=== PATIENT | female | born 1990 | race Caucasian/White ===

== ENCOUNTER 2016-12-21 21:42 | Emergency (ER) | payer BC, MEDICAID ==
[2016-12-21] MEDS ORDERED: Cephalexin CAP* 500 MG PO ONE (22:02)
--- NOTE | 2016-12-21 22:06 | UC ---
Skin Complaint HPI - HPI Summary HPI Summary: bug bite right 2nd toe 1 day ago now the area is red, swollen , very tender - History of Current Complaint Chief Complaint: UCSkin Time Seen by Provider: 12/21/16 21:46 Stated Complaint: PAINFUL RT 2ND TOE Hx Obtained From: Patient Hx Last Menstrual Period: 12/03/16 ?: No Onset/Duration: Sudden Onset, Lasting Days - 1, Still Present Timing: Constant Onset Severity: Moderate Current Severity: Moderate Location: Discrete - right 2nd toe Character: Swelling, Pain, Redness, Raised, Painful Aggravating: Touch Alleviating: Nothing Associated Signs & Symptoms: Positive: Negative - Allergy/Home Medications Allergies/Adverse Reactions: Allergies Allergy/AdvReac Type Severity Reaction Status Date / Time Sulfamethoxazole Allergy Hives Verified 12/21/16 21:51 w/Trimethoprim [From Bactrim] Home Medications: Home Medications Buprenorphine/Naloxone SL TAB* [Suboxone 8-2 mg SL TAB*] 1 tab.sl SL DAILY 12/21 [History Confirmed 12/21/16] Citalopram TAB* [CeleXA TAB*] 20 mg PO DAILY 12/21/16 [History Confirmed ] Nitrofurantoin Monohyd Macro [Macrobid] 100 mg PO BID 12/21/16 [History Confirmed 12/21/16] Omeprazole CAP* [Prilosec CAP* 20 MG] 20 mg DAILY 12/21/16 [History Confirmed ] Pramipexole TAB* [Mirapex TAB*] 0.125 mg PO TID 12/21/16 [History Confirmed ] Review of Systems Constitutional: Negative Eyes: Negative ENT: Negative Respiratory: Negative All Other Systems Reviewed And Are Negative: Yes PMH/Surg Hx/FS Hx/Imm Hx Previously Healthy: Yes - Surgical History Surgical History: Yes Surgery Procedure, Year, and Place: gall bladder. APPY - Family History Known Family History: Negative: Diabetes - Social History Alcohol Use: None Substance Use Type: None Smoking Status (MU): Light Every Day Tobacco Smoker Physical Exam Triage Information Reviewed: Yes Appearance: Well-Appearing, No Pain Distress, Well-Nourished Vital Signs: Initial Vital Signs Temp 97.6 F 12/21/16 21:46 Pulse 88 12/21/16 21:46 Resp 14 12/21/16 21:46 BP 103/58 12/21/16 21:46 Pulse Ox 99 12/21/16 21:46 Vital Signs Reviewed: Yes Eyes: Positive: Conjunctiva Clear ENT: Positive: Normal ENT inspection, Hearing grossly normal, Pharynx normal Neck exam: Normal Neck: Positive: Supple, Nontender, No Lymphadenopathy Respiratory: Positive: Chest non-tender, Lungs clear, Normal breath sounds Cardiovascular: Positive: RRR, No Murmur, Pulses Normal Skin: Positive: Other - right 2nd toe: + swelling , erythe, tenderness Course/Dx - Diagnoses Provider Diagnoses: cellulits toe Discharge - Discharge Plan Condition: Stable Disposition: HOME Prescriptions: Cephalexin CAP* [Keflex CAP*] 500 mg PO TID #30 cap Patient Education Materials: Abscess (ED) Referrals: Jarvis Palomo MD [Primary Care Provider] - If Needed
[2016-12-21 22:11] VITALS: BP 103/58
== END 2016-12-21 22:12 | disposition home or self-care (01) ==
LOC: UCCORT 21:42
DX: L03.031 Cellulitis of right toe (principal); F17.210 Nicotine dependence, cigarettes, uncomplicated
CPT/HCPCS: 99212; A9270-GY; G0463

== ENCOUNTER 2017-02-26 20:36 | Emergency (ER) | payer BC, MEDICAID ==
--- NOTE | 2017-02-26 20:50 | UC ---
Throat Pain/Nasal Kishan HPI - HPI Summary HPI Summary: 26 YEAR OLD FEMALE PRESENTS WITH COMPLAINS OF SORE THROAT X 1 DAY - History of Current Complaint Stated Complaint: SORE THROAT/FEVER Time Seen by Provider: 02/26/17 20:49 Hx Obtained From: Patient Hx Last Menstrual Period: 12/03/16 Onset/Duration: Sudden Onset Severity: Moderate Pain Scale Used: 0-10 Numeric - 4 - Allergies/Home Medications Allergies/Adverse Reactions: Allergies Allergy/AdvReac Type Severity Reaction Status Date / Time Sulfa Antibiotics Allergy Hives Verified 02/26/17 20:53 Sulfamethoxazole Allergy Hives Verified 12/21/16 21:51 w/Trimethoprim [From Bactrim] PMH/Surg Hx/FS Hx/Imm Hx Previously Healthy: Yes - Surgical History Surgical History: Yes Surgery Procedure, Year, and Place: gall bladder. APPY - Family History Known Family History: Negative: Diabetes - Social History Alcohol Use: None Substance Use Type: None Smoking Status (MU): Light Every Day Tobacco Smoker Review of Systems Constitutional: Negative Skin: Negative Eyes: Negative ENT: Sore Throat Respiratory: Negative Cardiovascular: Negative Gastrointestinal: Negative Genitourinary: Negative Motor: Negative Neurovascular: Negative Musculoskeletal: Negative Neurological: Negative Psychological: Negative All Other Systems Reviewed And Are Negative: Yes Physical Exam Triage Information Reviewed: Yes Appearance: Well-Appearing Eye Exam: Normal ENT: Positive: Pharyngeal erythema, Nasal drainage Dental Exam: Normal Neck exam: Normal Neck: Positive: 1 Respiratory Exam: Normal Cardiovascular Exam: Normal Abdominal Exam: Normal Musculoskeletal Exam: Normal Neurological Exam: Normal Psychological Exam: Normal Skin Exam: Normal Throat Pain/Nasal Course/Dx - Differential Dx/Diagnosis Provider Diagnoses: PHARYNGITIS Discharge - Discharge Plan Condition: Stable Disposition: HOME Prescriptions: Amoxicillin PO (*) [Amoxicillin 875 MG (*)] 875 mg PO BID #30 tab LoraTADine TAB(NF) [Claritin 10 MG TAB(NF)] 10 mg PO DAILY #30 tab Magic M W2 Andrea/Maal/Nyst/Lido* 5 ml SWISH SPIT QID PRN #120 ml PRN Reason: Sore Throat Patient Education Materials: Pharyngitis (ED) Forms: *Work Release Referrals: Jarvis Palomo MD [Primary Care Provider] -
[2017-02-26 20:52] VITALS: BP 112/60
[2017-02-26] MEDS ORDERED: Lidocaine 2% VISCOUS* 15 ML UDC SWISH SPIT ONE (21:11)
[2017-02-26] MEDS ORDERED: LoraTADine TAB(NF) 10 MG TAB (AUTOSUB to CETIRIZINE) PO ONE (21:11)
== END 2017-02-26 21:23 | disposition home or self-care (01) ==
LOC: UCCORT 20:36
DX: J02.9 Acute pharyngitis, unspecified (principal); Z88.2 Allergy status to sulfonamides; F17.210 Nicotine dependence, cigarettes, uncomplicated
CPT/HCPCS: 87651; 99212; A9270-GY; G0463

== ENCOUNTER 2017-06-05 20:23 | Emergency (ER) | payer BC, MEDICAID ==
[2017-06-05 20:55] VITALS: BP 115/57
--- NOTE | 2017-06-05 21:57 | UC ---
Abdominal Pain Female HPI - HPI Summary HPI Summary: one day of llq pain and fever tmax 103.9 no nausea,vomiting, diarrhea, body aches - History of Current Complaint Chief Complaint: UCAbdominalPain Stated Complaint: FEVER, ABD. PAIN Time Seen by Provider: 06/05/17 21:37 Hx Obtained From: Patient Hx Last Menstrual Period: 8 days late ?: No Onset/Duration: Sudden Onset, Lasting Days - 1, Still Present Timing: Constant Severity Initially: Moderate Severity Currently: Moderate Location: Discrete At: LLQ Radiates: No Aggravating Factor(s): Nothing Alleviating Factor(s): Nothing Associated Signs and Symptoms: Positive: Fever Allergies/Adverse Reactions: Allergies Allergy/AdvReac Type Severity Reaction Status Date / Time Sulfa Antibiotics Allergy Hives Verified 06/05/17 20:48 Sulfamethoxazole Allergy Hives Verified 06/05/17 20:48 w/Trimethoprim [From Bactrim] Home Medications: Home Medications Gabapentin 300 mg PO TID 06/05/17 [History Confirmed 06/05/17] PMH/Surg Hx/FS Hx/Imm Hx Previously Healthy: No GI/ History: Gastroesophageal Reflux Psychological History: Depression, Other Other Psychological History: Opiate abuse disorder in early remission - Surgical History Surgical History: Yes Surgery Procedure, Year, and Place: gall bladder. APPY. hole in bile duct - Family History Known Family History: Positive: None Negative: Diabetes - Social History Occupation: Unemployed Lives: Longterm Alcohol Use: None Substance Use Type: None Smoking Status (MU): Light Every Day Tobacco Smoker Type: Cigarettes Amount Used/How Often: occasional - Immunization History Most Recent Influenza Vaccination: no Review of Systems Constitutional: Fever Skin: Negative Eyes: Negative ENT: Negative Respiratory: Negative Cardiovascular: Negative Gastrointestinal: Abdominal Pain Genitourinary: Negative Motor: Negative Neurovascular: Negative Musculoskeletal: Negative Neurological: Negative Psychological: Negative Is Patient Immunocompromised?: No All Other Systems Reviewed And Are Negative: Yes Physical Exam Triage Information Reviewed: Yes Appearance: Well-Appearing, No Pain Distress, Obese Vital Signs: Initial Vital Signs Temp 103.3 F 06/05/17 20:51 Pulse 112 06/05/17 20:51 Resp 20 06/05/17 20:51 BP 115/57 06/05/17 20:51 Pulse Ox 99 06/05/17 20:51 Vital Signs Reviewed: Yes Eye Exam: Normal Eyes: Positive: Conjunctiva Clear ENT Exam: Normal ENT: Positive: Normal ENT inspection, Hearing grossly normal, Pharynx normal, TMs normal, Uvula midline. Negative: Nasal congestion, Nasal drainage, Tonsillar swelling, Tonsillar exudate, Trismus, Hoarse voice, Dental tenderness , Sinus tenderness Dental Exam: Normal Neck exam: Normal Neck: Positive: Supple, Nontender, No Lymphadenopathy Respiratory Exam: Normal Respiratory: Positive: Chest non-tender, Lungs clear, Normal breath sounds, No respiratory distress, No accessory muscle use Cardiovascular Exam: Normal Cardiovascular: Positive: No Murmur, Pulses Normal, Brisk Capillary Refill, Tachycardia Abdominal Exam: Normal Abdomen Description: Positive: No Organomegaly, Soft, Other: - tender left lower and mid left side of abdomen. Negative: CVA Tenderness (R), CVA Tenderness (L), Guarding, Hepatomegaly, McBurney's Point Tenderness, Peritoneal Signs, Pulsatile Mass Bowel Sounds: Positive: Present Musculoskeletal Exam: Normal Musculoskeletal: Positive: Strength Intact, ROM Intact, No Edema Neurological Exam: Normal Neurological: Positive: Alert, Muscle Tone Normal Psychological Exam: Normal Skin Exam: Normal Diagnostics - Laboratory Diagnostic Studies Completed/Ordered: u preg Positive, Ua trace esterace, influenza A/B negative Abd Pain Female Course/Dx - Course Course Of Treatment: NPO to [place] [facility] for further evaluation - Differential Dx/Diagnosis Provider Diagnoses: Fever, abdomen pain - Physician Notification/Consults Time Discussed With Above Provider: 21:55 - Ruthie Mckeon LIFE CONSULTANT Instructed by Provider To: Transfer Discharge - Discharge Plan Condition: Stable Disposition: OTHER Discharge Disposition Comment: [place] By private Car Patient Education Materials: Acute Abdominal Pain (ED) Forms: *Gen. Provider Communication Referrals: Jarvis Palomo MD [Primary Care Provider] - Additional Instructions: Please go directly to emergency department for additional care and treatment
== END 2017-06-05 21:59 ==
LOC: UCCORT 20:23
DX: R10.32 Left lower quadrant pain (principal); R50.9 Fever, unspecified; Z32.01 Encounter for pregnancy test, result positive; K21.9 Gastro-esophageal reflux disease without esophagitis; F32.9 Major depressive disorder, single episode, unspecified; F11.11 Opioid abuse, in remission; E66.9 Obesity, unspecified; Z90.49 Acquired absence of other specified parts of digestive tract; Z88.2 Allergy status to sulfonamides; F17.210 Nicotine dependence, cigarettes, uncomplicated
CPT/HCPCS: 81003; 84702; 87086; 87502; 99212; G0463

== ENCOUNTER 2017-08-13 10:36 | Emergency (ER) | payer BC, MEDICAID ==
[2017-08-13 11:56] VITALS: BP 102/60
--- NOTE | 2017-08-13 12:20 | ED ---
Throat Pain/Nasal Congestion - HPI Summary HPI Summary: 27 yr old female with the complaint of sore throat for a couple of days. She also complains of nasal congestion and mild cough as well. No fever or chills. She is about 4 months. She has no other complaints. - History of Current Complaint Chief Complaint: UCGeneralIllness Time Seen by Provider: 08/13/17 11:52 - Allergies/Home Medications Allergies/Adverse Reactions: Allergies Allergy/AdvReac Type Severity Reaction Status Date / Time Sulfa (Sulfonamide Allergy Intermediate Rash Verified 08/13/17 11:56 Antibiotics) Home Medications: Home Medications Desloratidine (NF) [Clarinex (NF)] 08/13/17 [History] Folic Acid TAB* [Folvite TAB*] 08/13/17 [History] Hss579/Iron Fum/Folic/Docusate [ 19 Tablet] 08/13/17 [History] PMH/Surg Hx/FS Hx/Imm Hx - Surgical History Surgery Procedure, Year, and Place: gall bladder. APPY. hole in bile duct Infectious Disease History: No Infectious Disease History: Denies: Traveled Outside the [place] in Last 30 Days - Family History Known Family History: Positive: None Negative: Diabetes - Social History Occupation: Unemployed Lives: With Family Alcohol Use: None Substance Use Type: Reports: None Smoking Status (MU): Light Every Day Tobacco Smoker Type: Cigarettes Amount Used/How Often: occasional Review of Systems Constitutional: Negative Positive: Sore Throat Positive: Cough All Other Systems Reviewed And Are Negative: Yes Physical Exam Triage Information Reviewed: Yes Vital Signs On Initial Exam: Initial Vitals Temp Pulse Resp BP Pulse Ox 96.8 F 77 20 102/60 99 08/13/17 11:52 08/13/17 11:52 08/13/17 11:52 08/13/17 11:52 08/13/17 11:52 Vital Signs Reviewed: Yes Appearance: Positive: Well-Appearing, No Pain Distress Skin: Positive: Warm, Skin Color Reflects Adequate Perfusion Head/Face: Positive: Normal Head/Face Inspection Eyes: Positive: EOMI ENT: Positive: Pharyngeal erythema, Nasal congestion Neck: Positive: Nontender Respiratory/Lung Sounds: Positive: Clear to Auscultation, Breath Sounds Present Cardiovascular: Positive: RRR. Negative: Murmur Abdomen Description: Positive: Nontender Neurological: Positive: Sensory/Motor Intact, Alert, Oriented to Person Place, Time, CN Intact II-III Psychiatric: Positive: Normal - Conner Coma Scale Best Eye Response: 4 - Spontaneous Best Motor Response: 6 - Obeys Commands Best Verbal Response: 5 - Oriented Coma Scale Total: 15 Diagnostics - Vital Signs Vital Signs Temp Pulse Resp BP Pulse Ox 08/13/17 11:52 96.8 F 77 20 102/60 99 - Laboratory Lab Results: Lab Results 08/13/17 Range/Units 12:04 Group A Strep Rapid Negative (Negative) Lab Statement: Any lab studies that have been ordered have been reviewed, and results considered in the medical decision making process. EENT Course/Dx - Course Course Of Treatment: 27 yr old female with sore throat, and URI symptoms. Plan DC home. Rapid strep neg - Diagnoses Provider Diagnoses: URI (upper respiratory infection) Discharge - Discharge Plan Condition: Good Disposition: HOME Patient Education Materials: Upper Respiratory Infection (ED) Referrals: Jarvis Palomo MD [Primary Care Provider] - 2 Days
== END 2017-08-13 12:25 | disposition home or self-care (01) ==
LOC: UCCORT 10:36
DX: J06.9 Acute upper respiratory infection, unspecified (principal); Z88.2 Allergy status to sulfonamides; F17.210 Nicotine dependence, cigarettes, uncomplicated
CPT/HCPCS: 87651; 99211; G0463

== ENCOUNTER 2017-10-08 15:36 | Emergency (ER) | payer BC, MEDICAID ==
[2017-10-08 16:01] VITALS: BP 86/62
--- NOTE | 2017-10-08 16:09 | UC ---
Ear Complaint HPI - HPI Summary HPI Summary: Pt c/o gradual onset of left ear pain 2-3 days. - History of Current Complaint Chief Complaint: UCEar Stated Complaint: LEFT EAR PAIN Time Seen by Provider: 10/08/17 15:53 Hx Obtained From: Patient ?: Yes - 24 weeks Onset/Duration: Gradual Onset, Still Present Severity Initially: Mild Severity Currently: Moderate Pain Intensity: 9 Associated Signs/Symptoms: Positive: Hearing Loss Related History: Seasonal Allergies - Allergies/Home Medications Allergies/Adverse Reactions: Allergies Allergy/AdvReac Type Severity Reaction Status Date / Time Sulfa (Sulfonamide Allergy Intermediate Rash Verified 10/08/17 15:53 Antibiotics) Home Medications: Home Medications Buprenorphine TAB* [Subutex TAB*] 8 mg SL BID 10/08/17 [History Confirmed ] metroNIDAZOLE TAB* [Flagyl 250 mg TAB*] 500 mg BID 10/08/17 [History Confirmed 10/08/17] traZODone TAB* [Desyrel TAB*] 50 mg BEDTIME 10/08/17 [History Confirmed 10/08/17 ] PMH/Surg Hx/FS Hx/Imm Hx Previously Healthy: Yes - Surgical History Surgical History: Yes Surgery Procedure, Year, and Place: gall bladder. APPY. hole in bile duct - Family History Known Family History: Positive: None Negative: Diabetes - Social History Occupation: Employed Full-time Lives: With Family Alcohol Use: None Substance Use Type: None Smoking Status (MU): Former Smoker Type: Cigarettes Amount Used/How Often: occasional Have You Smoked in the Last Year: Yes - Immunization History Most Recent Influenza Vaccination: no Review of Systems Constitutional: Negative Skin: Negative Eyes: Negative ENT: Ear Ache Respiratory: Negative Cardiovascular: Negative Gastrointestinal: Negative Genitourinary: Negative Motor: Negative Neurovascular: Negative Musculoskeletal: Negative Neurological: Negative Psychological: Negative Is Patient Immunocompromised?: No All Other Systems Reviewed And Are Negative: Yes Physical Exam Triage Information Reviewed: Yes Appearance: Well-Appearing Vital Signs: Initial Vital Signs Temp 97.2 F 10/08/17 15:56 Pulse 91 10/08/17 15:56 Resp 18 10/08/17 15:56 BP 86/62 10/08/17 15:56 Pulse Ox 99 10/08/17 15:56 Vital Signs Reviewed: Yes Eye Exam: Normal ENT Exam: Other ENT: Positive: Other - left ear canal with cerumen Respiratory Exam: Normal Musculoskeletal Exam: Normal Neurological Exam: Normal Psychological Exam: Normal Skin Exam: Normal Ear Complaint Course/Dx - Differential Dx/Diagnosis Differential Diagnosis/HQI/PQRI: Cerumen Impaction Provider Diagnoses: left ear cerumen impaction Discharge - Sign-Out/Discharge Documenting (check all that apply): Discharge/Admit/Transfer - Discharge Plan Condition: Stable Disposition: HOME Patient Education Materials: Cerumen Impaction (ED) Referrals: Jarvis Palomo MD [Primary Care Provider] - If Needed - Billing Disposition and Condition Condition: STABLE Disposition: HOME
== END 2017-10-08 16:27 | disposition home or self-care (01) ==
LOC: UCCORT 15:36
DX: H61.22 Impacted cerumen, left ear (principal); Z87.891 Personal history of nicotine dependence; Z88.2 Allergy status to sulfonamides
CPT/HCPCS: 99212; G0463

== ENCOUNTER 2017-12-26 16:46 | Emergency (ER) | payer BC, MEDICAID ==
[2017-12-26 17:52] VITALS: BP 103/55
--- NOTE | 2017-12-26 18:24 | UC ---
Skin Complaint HPI - HPI Summary HPI Summary: Pt is 9 months (EDC 01/24) and concerns for hcnv-ovwz-kxz-mouth disease. Patient states she had some sores on the outside of her right lower lip that scabbed over. Patient is mildly tender. Patient states today she developed some red flat rashes to her palms. Patient states she's had hand-foot -and-mouth before and this is how presented. No blisters. No pain. No fevers. No nausea or vomiting. No cough no chest pain. Patient continues to feel good baby movement. No changes to bowel or bladder. No dysuria. Patient recently discomfort found out that her hepatitis C has reactivated. Patient also has a history of HPV and herpes. She without any discomfort but wanted to get checked. Pt's medications reviewed this visit - History of Current Complaint Chief Complaint: UCSkin Time Seen by Provider: 12/26/17 17:41 Stated Complaint: SKIN COMPLAINT Hx Obtained From: Patient, Medical Records, Other: - [facility] Hx Last Menstrual Period: 8 days late Pain Intensity: 5 - Allergy/Home Medications Allergies/Adverse Reactions: Allergies Allergy/AdvReac Type Severity Reaction Status Date / Time Sulfa (Sulfonamide Allergy Intermediate Rash Verified 10/08/17 15:53 Antibiotics) Home Medications: Home Medications raNITIdine HCl [Ranitidine HCl] 150 mg PO BID 12/26/17 [History Confirmed ] Review of Systems Constitutional: Negative Skin: Rash Eyes: Negative ENT: Negative Respiratory: Negative Cardiovascular: Negative Gastrointestinal: Negative Neurovascular: Negative Musculoskeletal: Negative Neurological: Negative Psychological: Negative All Other Systems Reviewed And Are Negative: Yes PMH/Surg Hx/FS Hx/Imm Hx Previously Healthy: Yes Other GI/ History: HPV, herpes - Surgical History Surgical History: Yes Surgery Procedure, Year, and Place: gall bladder. APPY. hole in bile duct - Family History Known Family History: Positive: None Negative: Diabetes - Social History Occupation: Unemployed Lives: With Family Alcohol Use: None Substance Use Type: None Smoking Status (MU): Former Smoker Type: Cigarettes Amount Used/How Often: occasional Have You Smoked in the Last Year: Yes - Immunization History Most Recent Influenza Vaccination: no Physical Exam - Summary Physical Exam Summary: Vital Signs Reviewed: Yes A+Ox3, no distress Eyes: Conjunctiva Clear, DREW. EOM intact and full ENT: Hearing grossly normal TM x 2 clear, mmoist, uvula midline, no exudate, no erythema Neck: Positive: Supple Respiratory: Positive: No respiratory distress, No accessory muscle use + CTA throughout no w/r Cardiovascular: RRR nl s1, s2 no m/r CBT <2 sec abd soft + BS nt/nd no guarding, no distension gravid Musculoskeletal Exam: KENNEY x 4 without difficulty Strength Intact, ROM Intact Neurological: Positive: Alert, + sensation throughout Psychological: Positive: Normal Response To Family Skin: Positive: few with 3 small, scabbed lesion dry right right lower lip No lesions noted inside mouth, tongue, buccal membrane, soft palate Pt with flat small erythema Triage Information Reviewed: Yes Vital Signs: Initial Vital Signs Temp 98.2 F 12/26/17 17:44 Pulse 82 12/26/17 17:44 Resp 19 12/26/17 17:44 BP 103/55 12/26/17 17:44 Pulse Ox 99 12/26/17 17:44 Course/Dx - Course Course Of Treatment: Patient presents to be evaluated for possible usux-[id number]-gpz -mouth. Patient has dry scab lesion on the outside of her mouth that appear more consistent with herpes cold sore that have dried. Patient with very subtle small red areas to her palm. Not raised not blistered not tender. Patient reports good movement . Not petechial. Suspect this is a viral exanthem however not convinced it is asrf-mhal-mrc-mouth given the absence of blister appearing and discomfort. Recommend patient continue with secretion precaution. Tylenol as needed. Hydration. Recommend patient notify her OB before her appointment next Sunday if her symptoms progress. Recommended patient schedule follow-up with primary care provider. Strict return precautions discussed. Patient comfortable in agreement with plan. - Diagnoses Provider Diagnoses: viral [place] Discharge - Sign-Out/Discharge Documenting (check all that apply): Patient Departure - Discharge Plan Condition: Stable Disposition: HOME Patient Education Materials: Viral Exanthem (ED) Referrals: Jarvis Palomo MD [Primary Care Provider] - Additional Instructions: - Stay well-hydrated. Drink plenty of non-caffeinated beverages - Okay to take Tylenol, 650 mg, every 6-8 hours as needed for discomfort - If he developed sores in her mouth, cold fluids may be soothing. This includes popsicles, Jell-O, iced drinks - Contact your OB doctor before presenting to the office for the appointment next week - If you develop uncontrolled fevers, unable to eat or drink, abdominal pain, decrease baby activity or other concerns is recommended to come immediately to emergency department for further evaluation. - Billing Disposition and Condition Condition: STABLE Disposition: Home
== END 2017-12-26 18:37 | disposition home or self-care (01) ==
LOC: UCCORT 16:46
DX: O98.513 Other viral diseases complicating pregnancy, third trimester (principal); B09 Unspecified viral infection characterized by skin and mucous membrane lesions; L98.8 Other specified disorders of the skin and subcutaneous tissue; Z88.2 Allergy status to sulfonamides; Z87.891 Personal history of nicotine dependence
CPT/HCPCS: 99211; G0463

== ENCOUNTER 2018-05-10 11:50 | Emergency (ER) | payer BC, MEDICAID ==
[2018-05-10 12:36] VITALS: BP 95/66
--- NOTE | 2018-05-10 12:55 | UC ---
Lower Extremity/Ankle HPI - HPI Summary HPI Summary: right foot pain x 1 week twisted her right ankle 7 days ago no swelling, no bruising ankle improved but pain in he right foot increased - History of Current Complaint Chief Complaint: UCLowerExtremity Stated Complaint: RIGHT FOOT COMPLAINT Time Seen by Provider: 05/10/18 12:29 Hx Obtained From: Patient Hx Last Menstrual Period: 2016 ?: No Onset/Duration: Sudden Onset, Lasting Days - 7, Still Present Severity Initially: Moderate Severity Currently: Moderate Pain Intensity: 8 Aggravating Factor(s): Standing, Ambulation Alleviating Factor(s): Rest, Elevation, Ice Able to Bear Weight: Yes - Allergies/Home Medications Allergies/Adverse Reactions: Allergies Allergy/AdvReac Type Severity Reaction Status Date / Time Sulfa (Sulfonamide Allergy Intermediate Rash Verified 05/10/18 12:37 Antibiotics) Home Medications: Home Medications Ibuprofen TAB* [Motrin TAB* 600 MG] 600 mg PO BID PRN 05/10/18 [History Confirmed 05/10/18] PMH/Surg Hx/FS Hx/Imm Hx - Additional Past Medical History Additional PMH: Hep C Psychological History: Anxiety, Depression - Surgical History Surgical History: Yes Surgery Procedure, Year, and Place: gall bladder; c-sect 01/24/18. APPY. hole in bile duct - Family History Known Family History: Positive: None Negative: Diabetes - Social History Alcohol Use: None Substance Use Type: None Smoking Status (MU): Former Smoker Type: Cigarettes Amount Used/How Often: occasional Have You Smoked in the Last Year: Yes - Immunization History Most Recent Influenza Vaccination: no Review of Systems All Other Systems Reviewed And Are Negative: Yes Constitutional: Positive: Negative Skin: Positive: Negative Eyes: Positive: Negative ENT: Positive: Negative Is Patient Immunocompromised?: No Physical Exam Triage Information Reviewed: Yes Appearance: Well-Appearing, No Pain Distress, Obese Vital Signs: Initial Vital Signs Temp 97.2 F 05/10/18 12:27 Pulse 76 05/10/18 12:27 Resp 20 05/10/18 12:27 BP 95/66 05/10/18 12:27 Pulse Ox 99 05/10/18 12:27 Vital Signs Reviewed: Yes Eye Exam: Normal Eyes: Positive: Conjunctiva Clear ENT: Positive: Normal ENT inspection, Hearing grossly normal, Pharynx normal Dental: Positive: Percussion Tenderness @, Gross Decay/Caries @, Dental Fracture @ Neck: Positive: Supple, Nontender, No Lymphadenopathy Respiratory: Positive: Chest non-tender, Lungs clear, Normal breath sounds, No respiratory distress Cardiovascular: Positive: RRR, No Murmur, Pulses Normal Abdominal Exam: Normal Musculoskeletal: Positive: Other: - right ankle : no sweling, no burising, good ROM on flexion and extension right foot : + tenderness right , no swelling, good ROM Diagnostics - Laboratory Diagnostic Studies Completed/Ordered: xray right ankle : IMPRESSION: NO EVIDENCE OF FRACTURE. Lower Extremity Course/Dx - Differential Dx/Diagnosis Differential Diagnosis/HQI/PQRI: Arthritis Provider Diagnosis: Right foot strain Discharge - Sign-Out/Discharge Documenting (check all that apply): Patient Departure All imaging exams completed and their final reports reviewed: Yes - Discharge Plan Condition: Stable Disposition: HOME Patient Education Materials: Ankle Strain (ED) Referrals: Jarvis Palomo MD [Primary Care Provider] - - Billing Disposition and Condition Condition: STABLE Disposition: Home
== END 2018-05-10 13:23 | disposition home or self-care (01) ==
LOC: UCCORT 11:50
DX: S93.601A Unspecified sprain of right foot, initial encounter (principal); X58.XXXA Exposure to other specified factors, initial encounter; Y92.9 Unspecified place or not applicable; Z88.2 Allergy status to sulfonamides; Z87.891 Personal history of nicotine dependence
CPT/HCPCS: 99212; G0463

== ENCOUNTER 2018-09-20 15:50 | Emergency (ER) | payer BC, MEDICAID, OTHER ==
[2018-09-20 17:03] VITALS: BP 115/67
--- NOTE | 2018-09-20 17:28 | UC ---
Respiratory Complaint HPI - HPI Summary HPI Summary: Pt c/o cough, fever, wheezing, nasal and chest congestion X 2 days. - History of Current Complaint Chief Complaint: UCGeneralIllness Stated Complaint: COUGH, CONGESTION, FEVER Time Seen by Provider: 09/20/18 16:55 Hx Obtained From: Patient Hx Last Menstrual Period: Apr 26 2017 ?: No Onset/Duration: Gradual Onset, Lasting Days, Still Present Timing: Constant Severity Initially: Mild Severity Currently: Moderate Pain Intensity: 7 Character: Cough: Nonproductive Aggravating Factors: Deep Breaths, Recumbent Position Alleviating Factors: Nothing Associated Signs And Symptoms: Positive: Wheezing, URI, Nasal Congestion, Hoarseness Related History: Seasonal Allergies - Risk Factors Pulmonary Embolism Risk Factors: Negative Cardiac Risk Factors: Negative Pseudomonas Risk Factors: Negative Tuberculosis Risk Factors: Negative - Allergies/Home Medications Allergies/Adverse Reactions: Allergies Allergy/AdvReac Type Severity Reaction Status Date / Time Sulfa (Sulfonamide Allergy Intermediate Rash Verified 09/20/18 17:04 Antibiotics) Home Medications: Home Medications Loratadine 10 mg PO DAILY 09/20/18 [History Confirmed 09/20/18] PMH/Surg Hx/FS Hx/Imm Hx Previously Healthy: Yes - Surgical History Surgical History: Yes Surgery Procedure, Year, and Place: gall bladder; c-sect 01/24/18. [facility]. hole in bile duct - Family History Known Family History: Positive: None Negative: Diabetes - Social History Occupation: Employed Full-time Lives: With Family Alcohol Use: None Substance Use Type: None Smoking Status (MU): Former Smoker Type: Cigarettes Amount Used/How Often: occasional Have You Smoked in the Last Year: Yes - Immunization History Most Recent Influenza Vaccination: no Vaccination Up to Date: No Review of Systems All Other Systems Reviewed And Are Negative: Yes Constitutional: Positive: Fever, Chills, Fatigue Skin: Positive: Negative Eyes: Positive: Negative ENT: Positive: Sinus Congestion Respiratory: Positive: Cough Cardiovascular: Positive: Negative Gastrointestinal: Positive: Negative Genitourinary: Positive: Negative Motor: Positive: Negative Neurovascular: Positive: Negative Musculoskeletal: Positive: Negative Neurological: Positive: Negative Psychological: Positive: Negative Is Patient Immunocompromised?: No Physical Exam Triage Information Reviewed: Yes Appearance: Well-Appearing Vital Signs: Initial Vital Signs Temp 98.7 F 09/20/18 16:55 Pulse 74 09/20/18 16:55 Resp 18 09/20/18 16:55 BP 115/67 09/20/18 16:55 Pulse Ox 99 09/20/18 16:55 Vital Signs Reviewed: Yes Eye Exam: Normal ENT Exam: Other ENT: Positive: Nasal congestion, Hoarse voice Dental Exam: Normal Neck exam: Normal Neck: Positive: Supple, Nontender, No Lymphadenopathy Respiratory Exam: Normal Respiratory: Positive: Normal breath sounds Cardiovascular Exam: Normal Musculoskeletal Exam: Normal Neurological Exam: Normal Psychological Exam: Normal Skin Exam: Normal Respiratory Course/Dx - Differential Dx/Diagnosis Differential Diagnosis/HQI/PQRI: Asthma, Bronchitis, Exacerbation Of COPD Provider Diagnosis: Reactive airway disease that is not asthma, Cough Discharge - Sign-Out/Discharge Documenting (check all that apply): Patient Departure All imaging exams completed and their final reports reviewed: No Studies - Discharge Plan Condition: Stable Disposition: HOME Prescriptions: Albuterol HFA INHALER* [Ventolin HFA Inhaler*] 1 - 2 puff INH Q4H PRN #1 mdi PRN Reason: Sob/Wheezing Benzonatate CAP* [Tessalon 100 MG CAP*] 100 mg PO Q8H PRN #21 cap PRN Reason: Cough predniSONE TAB* [Deltasone 10 MG TAB*] 30 mg PO DAILY #12 tab Patient Education Materials: Reactive Airways Disease (ED) Referrals: Jarvis Palomo MD [Primary Care Provider] - If Needed - Billing Disposition and Condition Condition: STABLE Disposition: Home
== END 2018-09-20 17:51 | disposition home or self-care (01) ==
LOC: UCCORT 15:50
DX: R05 Cough (principal); J68.3 Other acute and subacute respiratory conditions due to chemicals, gases, fumes and vapors; Z88.2 Allergy status to sulfonamides; Z87.891 Personal history of nicotine dependence
CPT/HCPCS: 99212; G0463

== ENCOUNTER 2018-12-18 16:41 | Emergency (ER) | payer OTHER ==
[2018-12-18 16:53] VITALS: BP 88/58
--- NOTE | 2018-12-18 17:04 | UC ---
UC General HPI - HPI Summary HPI Summary: Began with nasal congestion and cough about 10 days ago. the nasal congestion has improved. the past 4-5 days, pt developed a sore throat and coughing makes it worse. no fever, cp, sob. pt notes Cathie enriquez have helped in the past. - History of Current Complaint Chief Complaint: UCGeneralIllness Stated Complaint: SORE THROAT,HEADACHE,COUGH Time Seen by Provider: 12/18/18 16:50 Hx Obtained From: Patient Hx Last Menstrual Period: Apr 26 2017 Onset/Duration: Gradual Onset Pain Intensity: 9 - Allergy/Home Medications Allergies/Adverse Reactions: Allergies Allergy/AdvReac Type Severity Reaction Status Date / Time Sulfa (Sulfonamide Allergy Intermediate Rash Verified 12/18/18 16:53 Antibiotics) PMH/Surg Hx/FS Hx/Imm Hx - Additional Past Medical History Additional PMH: allergies, RLS GI/ History: Gastroesophageal Reflux Psychological History: Anxiety - Surgical History Surgical History: Yes Surgery Procedure, Year, and Place: gall bladder; c-sect 01/24/18. [facility]. hole in bile duct. Csection - Family History Known Family History: Positive: None Negative: Diabetes - Social History Alcohol Use: None Substance Use Type: None Smoking Status (MU): Former Smoker Type: Cigarettes Amount Used/How Often: occasional Have You Smoked in the Last Year: Yes - Immunization History Most Recent Influenza Vaccination: no Vaccination Up to Date: No Review of Systems All Other Systems Reviewed And Are Negative: Yes Constitutional: Negative: Fever, Chills ENT: Positive: Sore Throat Respiratory: Positive: Cough. Negative: Shortness Of Breath Cardiovascular: Negative: Chest Pain Physical Exam Triage Information Reviewed: Yes Appearance: Well-Appearing Vital Signs: Initial Vital Signs Temp 99.3 F 12/18/18 16:50 Pulse 75 12/18/18 16:50 Resp 16 12/18/18 16:50 BP 88/58 12/18/18 16:50 Pulse Ox 99 12/18/18 16:50 Vital Signs Reviewed: Yes Eyes: Positive: Conjunctiva Clear ENT: Positive: Pharyngeal erythema - mild, TMs normal, Uvula midline. Negative : Nasal congestion, Nasal drainage, Tonsillar swelling, Tonsillar exudate, Trismus, Muffled voice, Hoarse voice Neck: Positive: Supple, Nontender, No Lymphadenopathy Respiratory: Positive: Lungs clear, Normal breath sounds, No respiratory distress Cardiovascular: Positive: RRR, No Murmur Abdomen Description: Positive: Nontender, No Organomegaly, Soft Bowel Sounds: Positive: Present Musculoskeletal: Positive: ROM Intact Neurological: Positive: Alert Psychological: Positive: Age Appropriate Behavior Skin Exam: Normal Diagnostics - Laboratory Lab Results: rapid strep=negative Course/Dx - Differential Dx - Multi-Symptom Differential Diagnoses: Other - rapid strep=neg. antibiotic not indicated - Diagnoses Provider Diagnosis: Pharyngitis, Cough Discharge - Sign-Out/Discharge Documenting (check all that apply): Patient Departure All imaging exams completed and their final reports reviewed: No Studies - Discharge Plan Condition: Stable Disposition: HOME Prescriptions: Benzonatate CAP* [Tessalon 100 MG CAP*] 100 mg PO TID #10 cap Patient Education Materials: Pharyngitis (ED), Acute Cough (ED) Referrals: Jarvis Palomo MD [Primary Care Provider] - - Billing Disposition and Condition Condition: STABLE Disposition: Home
== END 2018-12-18 17:15 | disposition home or self-care (01) ==
LOC: UCCORT 16:41
DX: J02.9 Acute pharyngitis, unspecified (principal); R05 Cough; Z87.891 Personal history of nicotine dependence; Z88.1 Allergy status to other antibiotic agents
CPT/HCPCS: 87651; 99212; G0463